=== PATIENT | female | born 1945 | race Caucasian/White ===

== ENCOUNTER 2024-01-03 08:54 | Day surgery (SDC) | payer MEDICARE, OTHER, SELFPAY ==
[2023-12-27 10:50] VITALS: BMI 29.6
[2024-01-03] VITALS (7 sets, daily range): BP systolic 114–172; BP diastolic 71–102; BMI 29.5
[2024-01-03 13:59] LABS: ACT-LR - POC 292 Seconds (116-155)
[2024-01-03 14:14] LABS: ACT-LR - POC 285 Seconds (116-155)
[2024-01-03 14:38] LABS: ACT-LR - POC > 397 Seconds (116-155)
[2024-01-03 14:54] LABS: ACT-LR - POC 368 Seconds (116-155)
[2024-01-03 15:31] LABS: ACT-LR - POC > 397 Seconds (116-155)
[2024-01-03 15:51] LABS: ACT-LR - POC 150 Seconds (116-155)
--- NOTE | 2024-01-03 16:40 | ITS.CL.ABL ---
Food General Manager - Ablation
Ablation
Procedure Report:
Primary Physician: Genevieve Hong DO
Primary Freezer Laboratory Technician: Bora Hernandez MD
Procedure Date: 01/03/2024
Procedure
Electrophysiology Study with SVT ablation
Left atrial recording / pacing
IV drug for arrhythmia induction
Transseptal
Intracardiac Ultrasound
Patient History
Patient is a pleasant 78-year-old female with a past medical history significant for hypothyroidism, hyperlipidemia, hypertension, and symptomatic supraventricular tachycardia�noted to be long RP tachycardia on EKG and Holter monitor maintained on
metoprolol succinate with breakthrough.
Method
After informed consent was obtained, the patient was brought to the EP lab in a post-absorptive, non-sedated state. A peripheral IV was in place. Continuous electrocardiography, blood pressure and pulse oximetry monitoring was initiated and
cardioversion / defibrillator electrodes were positioned on the chest in an AP orientation. A 'time-out' was called. Conscious sedation was administered with the assistance of the anesthesia services, and local anesthesia was given at the femoral
vein access sites.
Using modified Seldinger technique, vascular access was achieved and sheaths were placed. Multipolar catheters were advanced to the coronary sinus, His bundle recording position, right ventricle, and high right atrium. Following the determination
of baseline conduction intervals, comprehensive EP study was performed. Pacing and recording from the RV, HBE, and CS / LA was performed.
For arrhythmia details, see below.
Fluoroscopy time:
7.2 min; 13.8 mGy; DAP 1.7
Total RF time:
6pio08f
Estimated Blood Loss
5-10 mL
Complications
None
At the end of the procedure, all catheters and sheaths were removed and hemostasis was assured with Vascade/Vascade MVP with manual pressure. The patient was returned to the recovery area in stable condition.
Access Sites:
Left Femoral Vein: 2 sheaths (7 Fr, 6 Fr)
Right Femoral Vein: 2 sheaths (9 Fr upsized to 11.5 Fr, 6 Fr upsized to a 10 Fr)
Baseline Intervals:
Rhythm: SR
NY: 145 ms
AH: 94 ms
HV: 42 ms
QRS: 102 ms
QT: 295 ms
Post-Procedure Intervals:
NY: 163 ms
AH: 94 ms
HV: 42 ms
QRS: 85 ms
QT: 368 ms
QTc: 446 ms
A-A: 682 ms
R-R: 682 ms
AV Conduction:
- AVWB at 400 msec
Refractory Periods
- AV Node ERP 550/310
Procedure Synopsis:
The patient entered the room in supraventricular tachycardia. Following initial placement of catheters (CS, his, RV), activation was noted to be concentric. Spontaneous PVCs (his refractory) demonstrated block in the node with a VA AV response
(not determining atrial activity). Attempt at RV pacing did not affect (advance or reset) the tachycardia. Septal VA time was noted to 226 ms. Tachycardia cycle length was noted at 440-450 ms. Attempt at atrial overdrive pacing yielded
termination with spontaneous reinduction of incessant tachycardia. Heparin was provided and maintained with a goal ACT 300�400. HD grid was advanced through the short 9 [place] sheath into the right atrium and extensive mapping was performed.
Earliest activation of this atrial tachycardia was noted at the anterior interatrial septum (-10 ms early with small R waves noted in unipolar EGM). Next, the RV apical catheter was removed from the 6 [place] right groin sheath and the sheath was
exchanged for a 10 [place] short sheath. Intracardiac ultrasound (ICE) was carefully advanced into the right atrium to guide sheath placement over a J-wire, catheter placement, guide trans-septal puncture, identify potential complications, identify
anatomic structures and ensure proper contact between ablation catheter and tissue. No evidence of pericardial effusion noted at baseline. The HD grid was removed from the short 9 [place] sheath and the short 9 [place] sheath was exchanged for the
11.5 [place] steerable Agilis sheath which was advanced into the SVC under fluoroscopic guidance. Trans-septal access was performed under ICE guidance. ICE and 3D mapping was performed to identify relevant cardiac structures. A careful 3D map was
created to assess for regions of low-voltage and abnormal electrogram signals. The trans-septal puncture was performed with a SafeSept wire through a [place] needle assembly through the Agilis. The wire was visualized as it entered the LSPV.
The [place] needle assembly, SafeSept wire and sheath dilator were removed under negative pressure and LA pressure measurements were performed (18/10). HD grid was advanced in the left atrium and extensive electroanatomic mapping was performed
which demonstrated earliest activation/focal activation at 930 on the mitral annulus. HD grid was removed from the left atrium and a TactiCath SE DF curve ablation catheter was advanced in the left atrium. Throughout the entire study, patient had
incessant atrial tachycardia with intermittent spontaneous termination and reinitiation. The ablation catheter was advanced to the spot demonstrating earliest activation with complex fractionation and QS unipolar signal. Initial placement of the
catheter caused spontaneous termination of the atrial tachycardia for longer than previous episodes. Catheter was removed from the spot floating in the left atrium with reinitiation of the atrial tachycardia spontaneously. Catheter was gently
advanced back to this earliest activation spot and RF was initiated with termination of atrial tachycardia. Consolidation ablation was performed in this region. Atrial tachycardia was not present for the remainder of the case with a greater than
30-minute waiting period. Isoproterenol infusion and reduction in sedation were also utilized along with electrophysiology study for reinduction. Atrial tachycardia was not induced nor was there evidence of other arrhythmias. Catheter and sheath
were removed from the left atrium and post-ablation intracardiac echo evaluation was consistent with pre-ablation with no changes and no pericardial effusion and there is no left atrial thrombus or left ventricle thrombus seen. Measurements
electrophysiology study were once more performed. Hemostasis was assured as noted above.
Recommendations
-Anticipate same-day discharge if patient meeting clinical metrics
- Bedrest with straight-leg precautions
- Aspirin 81 mg daily for 30 days
- Continue home medications as indicated
- Follow-up in office in 4-[address] Hernandez
Dioni Mcnally DO
Clinical Cardiac Electrophysiology
cc: Genevieve Hong DO; Bora Hernandez MD
[2024-01-06 07:55] LABS: ACT-LR - POC > 397 Seconds (116-155)
== END 2024-01-03 18:43 | disposition home or self-care (01) ==
LOC: CATH 08:54
PROVIDERS: ATTENDING PHYSICIAN Internal Medicine Cardiovascular Disease; FAMILY PHYSICIAN Family Medicine; OTHER PHYSICIAN Internal Medicine Interventional Cardiology
DX: I47.10 Supraventricular tachycardia, unspecified (principal); I10 Essential (primary) hypertension; E78.5 Hyperlipidemia, unspecified; E03.9 Hypothyroidism, unspecified; Z87.891 Personal history of nicotine dependence; I87.2 Venous insufficiency (chronic) (peripheral); M85.80 Other specified disorders of bone density and structure, unspecified site; K21.9 Gastro-esophageal reflux disease without esophagitis; I83.90 Asymptomatic varicose veins of unspecified lower extremity; Z79.82 Long term (current) use of aspirin; Z79.890 Hormone replacement therapy; Z88.0 Allergy status to penicillin
CPT/HCPCS: 93662; C1732; C1730; C1894; C1769; C1766; C2630; 76937; 85347; 86850; 86900; 86901; 93005; 93623; 93653; C1759; C1760; C1892